=== PATIENT | female | born 1960 | race Caucasian/White ===

== ENCOUNTER → 2019-11-03 09:23 | Outpatient (CLI) | payer OTHER, SELFPAY ==
--- NOTE | ~2019-11-03 | XR_ITS ---
EXAMINATION: XR nasal bones min 3V DATE: 11/03/2019 09:49 INDICATION: Nose pain. Fall. TECHNIQUE: 3 views of the nasal bones were obtained. COMPARISON: Nasal bone radiographs 10/13/2006 FINDINGS: Bone alignment is normal. No fracture. IMPRESSION: 1. No fracture. Reviewed, dictated and finalized at location A. 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 No fracture.
== END ==
LOC: EXPCRAD 09:27
PROVIDERS: PCP Emergency Medicine; Visit Provider Emergency Medicine
DX: J34.89 Other specified disorders of nose and nasal sinuses (principal)
CPT/HCPCS: 70160

== ENCOUNTER → 2019-12-01 11:18 | Outpatient (CLI) | payer OTHER, SELFPAY ==
--- NOTE | ~2019-12-01 | US_ITS ---
EXAMINATION: US abdomen complete EXAM DATE: 12/01/2019 11:45 INDICATION: General abdominal pain. TECHNIQUE: Multiple grayscale and Doppler images of the complete abdomen were obtained (by a technolo gist who performed the scan) and subsequently reviewed. Comparison is made to prior examination from 02/15/2018. FINDINGS: The abdominal aorta is normal in caliber. Visualized portion IVC is patent. The pancreatic head a nd body are normal in appearance. The pancreatic tail is not visualized. The liver has normal echogenicity and contour. There are no focal liver lesions identified. There is no evidence of intrahepatic biliary duct dilation. Portal venous flow was seen in the hepatopedal , normal direction and has normal Doppler waveform. Common bile duct measures 4 mm, which is normal. The gallbladder fossa is unremarkable. Right kidney: There is normal contour and echogenicity. It measures 8.2 x 3.3 x 4.1 centimeters. T here are no focal renal lesions identified. There is no hydronephrosis. Left kidney: There is normal contour and echogenicity. It measures 8.9 x 5.4 x 4.4 centimeters. Exo phytic lesion with increased through transmission consistent with cyst measuring 1.5 cm. There is n o hydronephrosis. The spleen is morphologically normal. IMPRESSION: 1. Unremarkable complete abdominal ultrasound exam. Reviewed, dictated and finalized at location B. [employer]CTIONAL OFFICER
== END ==
PROVIDERS: Visit Provider Emergency Medicine
DX: R10.9 Unspecified abdominal pain (principal)
CPT/HCPCS: 76700

== ENCOUNTER 2020-07-09 12:44 | Outpatient (CLI) | payer OTHER, SELFPAY ==
--- NOTE | 2020-07-18 14:57 | WPDPFTINT ---
PFT Interpretation PFT Interpretation: DOS: 07/09/2020 REQUESTING: Dr. Brain Daniel REASON FOR TESTING: COPD, dyspnea PULMONARY FUNCTION TESTS Results are reliable. Spirometry: FEV1 is 88%, FVC is 92%, FEV1% is 70%, all normal. After bronchodilator there is a 13% increase in FVC, greater than 200 ml, a significant response. The [id number]% is very low at 47%, without change after bronchodilator. Lung volumes: TLC 107%, normal. RV is normal, however RV/TLC is increased consistent with air trapping. Normal airway resistance. The slow vital capacity is 100%, higher than FVC, demonstrating dynamic air trapping consistent with on obstructive process. Diffusion: DLCO 55%, moderately decreased. Flow volume loop: Scooping of the expiratory limb. IMPRESSION: This test shows mild airflow obstruction which is severe in the small airways, good response to bronchodilator, mild air trapping and moderate diffusion impairment. Anastasiya Pak MD
--- NOTE | 2020-07-20 12:11 | WPDPFTINT ---
PFT Interpretation PFT Interpretation: This PFT met all criteria for ATS standards and reproducibility FEV/FVC post bronchodilator 65% FEV1 92% FVC 105% or 2.97 liters FVC improved by 13% and 350 ml post bronchodilator TLC 107% RV 118% RV/TLC 41% DLCO 55% when adjusted for alveolar volume but not adjusted for hemoglobin Flow volume loops showed significant expiratory coving Impression: Mild airflow obstruction with borderline air trapping and moderately reduced diffusion capacity. This pattern fits that of COPD with possible Asthma component. Clinical correlation is advised.
== END 2020-07-09 12:45 | disposition home or self-care (01) ==
LOC: ANHPFT 12:44
PROVIDERS: Visit Provider Emergency Medicine
DX: R06.00 Dyspnea, unspecified (principal); J44.9 Chronic obstructive pulmonary disease, unspecified
CPT/HCPCS: 94060; 94726; 94729